=== PATIENT | female | born 1975 | race Caucasian/White ===

== ENCOUNTER 2020-12-19 19:25 | Emergency (ER) | payer OTHER ==
[2020-12-19 19:42] VITALS: BP 122/78; PULSE 85; TEMP 98.6; BMI 42.4
== END 2020-12-19 23:23 | disposition home or self-care (01) ==
LOC: JER 19:25
DX: L03.116 Cellulitis of left lower limb (principal)
CPT/HCPCS: 73590-TC-LT-FY; 93971-TC; 99284-25